=== PATIENT | female | born 1970 | race Caucasian/White ===

== ENCOUNTER → 2017-01-04 | Outpatient (CLI) | payer OTHER | LOC: RAD 14:16 → ULTRA 14:16 | DX: N63 Unspecified lump in breast (principal) ==

== ENCOUNTER → 2017-02-20 | Outpatient (CLI) | payer OTHER | LOC: ULTRA 07:21 | DX: N83.202 Unspecified ovarian cyst, left side (principal) ==

== ENCOUNTER → 2017-05-15 | Outpatient (CLI) | payer OTHER | LOC: RAD 04-16 14:50 | DX: Z12.31 Encounter for screening mammogram for malignant neoplasm of breast (principal) ==

== ENCOUNTER → 2018-05-27 | Outpatient (CLI) | payer OTHER | LOC: RAD 05-16 14:07 | DX: Z12.31 Encounter for screening mammogram for malignant neoplasm of breast (principal) ==

== ENCOUNTER → 2019-06-03 | Outpatient (CLI) | payer OTHER | LOC: RAD 01:27 | DX: Z12.31 Encounter for screening mammogram for malignant neoplasm of breast (principal) ==

== ENCOUNTER → 2020-07-07 | Outpatient (CLI) | payer OTHER | LOC: BC 09:27 | PROVIDERS: ATTEND Neuromusculoskeletal Medicine & OMM | DX: Z12.31 Encounter for screening mammogram for malignant neoplasm of breast (principal) ==